=== PATIENT | female | born 1985 | race Caucasian/White ===

== ENCOUNTER → 2020-05-21 | Emergency (ER) | payer OTHER ==
[~2020-05-21] VITALS: Ht 160 cm; Wt 60.3 kg
[~2020-05-21] MED LIST: PEPCID40 MG PO; PRENATE ELITE1 EAC2
== END | disposition home or self-care (01) ==
LOC: ER 23:41
DX: O26.891 Other specified pregnancy related conditions, first trimester (principal); K29.70 Gastritis, unspecified, without bleeding; Z34.01 Encounter for supervision of normal first pregnancy, first trimester

== ENCOUNTER 2020-08-15 10:06 | Outpatient (CLI) | payer OTHER ==
[2020-08-15] MEDS ORDERED: ASA81 MG PO (10:11)
[2020-08-15] MEDS ORDERED: NASAL MIST126 ML PO (10:12)
[2020-08-16] MEDS ORDERED: DUI500 PO (11:08)
== END 2020-08-16 13:03 | disposition home or self-care (01) ==
LOC: OBS/DEL 10:06
PROVIDERS: ATTEND Specialist
DX: O26.842 Uterine size-date discrepancy, second trimester (principal); Z3A.26 26 weeks gestation of pregnancy

== ENCOUNTER 2020-11-17 07:43 | Inpatient (IN) | payer OTHER ==
[~2020-11-17] VITALS: Ht 160 cm; Wt 71.7 kg
[~2020-11-17 07:43] MED LIST changes: +ASA81 MG PO; +DUI500 PO; +NASAL MIST126 ML PO
== END 2020-11-19 14:47 | disposition home or self-care (01) | DRG 807 ==
LOC: LDR 07:43 → OB/GYN 19:19
PROVIDERS: ADMIT Specialist; ATTEND Specialist
PROC: 10E0XZZ Delivery of Products of Conception, External Approach (ICD-10-PCS; principal; 2020-11-17)
PROC: 0KQM0ZZ Repair Perineum Muscle, Open Approach (ICD-10-PCS; 2020-11-17)
PROC: 10907ZC Drainage of Amniotic Fluid, Therapeutic from Products of Conception, Via Natural or Artificial Opening (ICD-10-PCS; 2020-11-17)
PROC: 3E033VJ Introduction of Other Hormone into Peripheral Vein, Percutaneous Approach (ICD-10-PCS; 2020-11-17)
PROC: 4A1HXFZ Monitoring of Products of Conception, Cardiac Rhythm, External Approach (ICD-10-PCS; 2020-11-17)
DX: O70.1 Second degree perineal laceration during delivery (principal); Z37.0 Single live birth; Z3A.39 39 weeks gestation of pregnancy; Z20.822 Contact with and (suspected) exposure to COVID-19